=== PATIENT | female | born 1965 | race American Indian/Alaskan Native ===

== ENCOUNTER 2017-12-05 11:11 | Outpatient (CLI) | payer OTHER ==
--- NOTE | 2017-12-05 12:56 | Mammography Report ---
BILATERAL DIGITAL DIAGNOSTIC MAMMOGRAM with CAD and LEFT BREAST ULTRASOUND: 12/05/17 CLINICAL: Left breast pain and axillary pain COMPARISON:08/14/14 FINDINGS: The breasts are heterogeneously dense, which may obscure small masses.No mass, architectural distortion or suspicious calcifications. Ultrasound of the left breast (including all four quadrants and the retroareolar area) was performed. A nontender benign cyst at 4 o'clock 4 cm from the nipple measures 3 x 2 x 3 mm. No other cysts and no mass. Ultrasound of the left axilla demonstrated a lymph node with central fat and benign morphology measuring 1.4 x 1.0 x 0.6 cm. The lymph node was tender to pressure of the probe and corresponds to the area of pain in the axilla. IMPRESSION: Negative mammogram.A benign 3 mm left breast cyst at 4 o'clock 4 cm from the nipple and a benign but symptomatic left axillary lymph node. BI-RADS CATEGORY: 2 -- Benign RECOMMENDATION: Clinical followup of the axilla and routine mammographic screening in one year. COMMENT: Patient follow-up letters are generated by our [employer] application.
== END 2017-12-05 11:12 | disposition home or self-care (01) ==
LOC: SPVWC 11:11
PROVIDERS: ATTEND Obstetrics & Gynecology
DX: Z12.31 Encounter for screening mammogram for malignant neoplasm of breast (principal); N60.02 Solitary cyst of left breast
CPT/HCPCS: 77066